=== PATIENT | male | born 1940 | race Caucasian/White ===

== ENCOUNTER → 2016-08-10 | Outpatient (CLI) | payer MEDICARE ==
[~2016-08-10] MED LIST: COUM6TAB PO; COUM7.5T PO; ENOX150I SQ; FAMO20TA2 PO; FURO1TAB93 PO; HYDR-3535 PO; LIPI40TA PO; LISI-363 PO; LISI30TA4 PO; LORT10TA PO; LYRI150C PO; LYRI225C PO; PROT40TA PO; SENN1TAB PO; WARF1TAB PO; ZETI10TA5 PO
[2016-08-10 10:29] LABS: INTERNATIONAL NORMALIZED RATIO 1.5 RATIO; PROTHROMBIN TIME - PATIENT 16.4 SEC (9.8-11.6)
== END ==
LOC: PLAB 09:28
PROVIDERS: ATTEND Specialist
DX: Z51.81 Encounter for therapeutic drug level monitoring (principal)
CPT/HCPCS: 36415; 85610

== ENCOUNTER → 2016-08-23 | Outpatient (CLI) | payer MEDICARE ==
[2016-08-23 15:08] LABS: INTERNATIONAL NORMALIZED RATIO 2.5 RATIO; PROTHROMBIN TIME - PATIENT 28.4 SEC (9.8-11.6)
== END ==
LOC: PLAB 14:18
PROVIDERS: ATTEND Specialist
DX: Z51.81 Encounter for therapeutic drug level monitoring (principal)
CPT/HCPCS: 36415; 85610

== ENCOUNTER → 2016-08-30 | Outpatient (CLI) | payer MEDICARE ==
[2016-08-30 16:39] LABS: AUTOMATED NEUTROPHIL # 4.6 TH/MM3 (1.8-7.7); BASOPHIL % 0.6 % (0.0-2.0); EOSINOPHIL # 0.2 TH/MM3 (0-0.4); EOSINOPHIL % 2.7 % (0.0-4.0); HEMATOCRIT 42.3 % (39.0-51.0); HEMO FLAGS DIFF FINAL; LYMPH % 22.8 % (9.0-44.0); LYMPHOCYTE # 1.5 TH/MM3 (1.0-4.8); MEAN CELL VOLUME 81.3 FL (80.0-100.0); MEAN CORPUSCULAR HEMOGLOBIN 27.1 PG (27.0-34.0); MEAN CORPUSCULAR HGB CONC 33.3 % (32.0-36.0); MONO % 6.8 % (0.0-8.0); NEUT % 67.1 % (16.0-70.0); PLATELET COUNT 167 TH/MM3 (150-450); RED CELL DISTRIBUTION WIDTH 13.9 % (11.6-17.2); WHITE BLOOD COUNT 6.8 TH/MM3 (4.0-11.0)
[2016-08-30 16:51] LABS: INTERNATIONAL NORMALIZED RATIO 5.9 RATIO; PROTHROMBIN TIME - PATIENT 70.4 SEC (9.8-11.6)
[2016-08-30 18:19] LABS: ANION GAP 8 MEQ/L (5-15); AST (GOT) 18 U/L (15-37); BICARBONATE 26.5 MEQ/L (21.0-32.0); BLOOD UREA NITROGEN 16 MG/DL (7-18); CHLORIDE 108 MEQ/L (98-107); GLOMERULAR FILTRATION RATE 59 ML/MIN (>89); POTASSIUM 4.3 MEQ/L (3.5-5.1); SODIUM (NA) 142 MEQ/L (136-145)
[2016-08-30 18:22] LABS: ALKALINE PHOSPHATASE 85 U/L (45-117); ALT (GPT) 31 U/L (12-78); TOTAL BILIRUBIN ADULT 0.4 MG/DL (0.2-1.0)
== END ==
LOC: PLAB 15:11
PROVIDERS: ATTEND Specialist
DX: G93.3 Postviral and related fatigue syndromes (principal); R53.1 Weakness; R53.81 Other malaise; R53.83 Other fatigue; M31.6 Other giant cell arteritis; I48.91 Unspecified atrial fibrillation; Z51.81 Encounter for therapeutic drug level monitoring
CPT/HCPCS: 36415; 80053; 85025; 85610

== ENCOUNTER → 2016-09-04 | Outpatient (CLI) | payer MEDICARE ==
[2016-09-04 16:05] LABS: INTERNATIONAL NORMALIZED RATIO 2.4 RATIO; PROTHROMBIN TIME - PATIENT 27.4 SEC (9.8-11.6)
== END ==
LOC: PLAB 13:02
PROVIDERS: ATTEND Specialist
DX: Z51.81 Encounter for therapeutic drug level monitoring (principal)
CPT/HCPCS: 36415; 85610

== ENCOUNTER → 2016-09-20 | Outpatient (CLI) | payer MEDICARE ==
[2016-09-20 16:33] LABS: INTERNATIONAL NORMALIZED RATIO 1.5 RATIO; PROTHROMBIN TIME - PATIENT 16.3 SEC (9.8-11.6)
== END ==
LOC: PLAB 15:35
PROVIDERS: ATTEND Specialist
DX: Z51.81 Encounter for therapeutic drug level monitoring (principal)
CPT/HCPCS: 36415; 85610

== ENCOUNTER → 2016-10-02 | Outpatient (CLI) | payer MEDICARE ==
[2016-10-02 10:48] LABS: INTERNATIONAL NORMALIZED RATIO 1.5 RATIO; PROTHROMBIN TIME - PATIENT 17.4 SEC (9.8-11.6)
== END ==
LOC: PLAB 09:39
PROVIDERS: ATTEND Specialist
DX: Z51.81 Encounter for therapeutic drug level monitoring (principal)
CPT/HCPCS: 36415; 85610

== ENCOUNTER → 2016-10-05 | Outpatient (CLI) | payer MEDICARE ==
[2016-10-05 12:38] LABS: INTERNATIONAL NORMALIZED RATIO 2.2 RATIO; PROTHROMBIN TIME - PATIENT 24.6 SEC (9.8-11.6)
== END ==
LOC: PLAB 11:33
PROVIDERS: ATTEND Specialist
DX: Z51.81 Encounter for therapeutic drug level monitoring (principal); Z79.899 Other long term (current) drug therapy
CPT/HCPCS: 36415; 85610

== ENCOUNTER 2016-12-26 20:01 | Observation (INO) | payer MEDICARE ==
[~2016-12-26] VITALS: Ht 182.9 cm; Wt 165.3 kg
[~2016-12-26 20:01] MED LIST changes: -COUM6TAB PO; -ENOX150I SQ; -FAMO20TA2 PO; -HYDR-3535 PO; -LISI30TA4 PO; -LYRI150C PO; -LYRI225C PO; -SENN1TAB PO
[2016-12-26 20:08] VITALS: BP 90/45; PULSE 83; RESP 20; TEMP 97.7; O2SAT 96
[2016-12-26] MEDS ORDERED: SODIUM CHLORIDE 0.9% FLUSH 10 ML FLUSH IVF PRN (20:30)
[2016-12-26] MEDS ORDERED: ASPIRIN 81 MG CHEW TAB PO ONE (20:30)
[2016-12-26] MEDS ORDERED: SODIUM CHLOR 0.9% 1000 ML INJ 1,000 ML IV ONE (20:30)
[2016-12-26] MEDS ORDERED: ZETI10TA5 PO (20:35)
[2016-12-26] MEDS ORDERED: COUM6TAB PO (20:35)
[2016-12-26] MEDS ORDERED: HYDR-3535 PO (20:35)
[2016-12-26] MEDS ORDERED: LIPI40TA PO (20:35)
[2016-12-26] MEDS ORDERED: PROT40TA PO (20:35)
[2016-12-26] MEDS ORDERED: LISI30TA4 PO (20:35)
[2016-12-26 20:39] VITALS: BP 110/46; PULSE 71; RESP 18; O2SAT 96
[2016-12-26 20:44] LABS: AUTOMATED NEUTROPHIL # 8.9 TH/MM3 (1.8-7.7); BASOPHIL # 0.1 TH/MM3 (0-0.2); BASOPHIL % 0.8 % (0.0-2.0); EOSINOPHIL # 0.1 TH/MM3 (0-0.4); EOSINOPHIL % 0.6 % (0.0-4.0); HEMATOCRIT 41.8 % (39.0-51.0); HEMO FLAGS DIFF FINAL; LYMPHOCYTE # 1.9 TH/MM3 (1.0-4.8); MEAN CELL VOLUME 82.1 FL (80.0-100.0); MEAN CORPUSCULAR HEMOGLOBIN 27.3 PG (27.0-34.0); MEAN CORPUSCULAR HGB CONC 33.2 % (32.0-36.0); MONO % 6.9 % (0.0-8.0); NEUT % 75.7 % (16.0-70.0); PLATELET COUNT 172 TH/MM3 (150-450); RED BLOOD COUNT 5.09 MIL/MM3 (4.50-5.90); WHITE BLOOD COUNT 11.8 TH/MM3 (4.0-11.0)
[2016-12-26 20:51] LABS: CHLORIDE 110 MEQ/L (98-107); POTASSIUM 5.4 MEQ/L (3.5-5.1); SODIUM (NA) 141 MEQ/L (136-145)
[2016-12-26 20:55] LABS: ANION GAP 12 MEQ/L (5-15); BICARBONATE 19.4 MEQ/L (21.0-32.0); BLOOD UREA NITROGEN 47 MG/DL (7-18)
--- NOTE | 2016-12-26 20:55 | RADHPO ---
EXAM DATE/TIME: 12/26/2016 20:41 [facility] COMPARISON: No previous studies available for comparison. INDICATIONS : Chest pain starting today MEDICAL HISTORY : None. SURGICAL HISTORY : None. ENCOUNTER: Initial ACUITY: 1 day PAIN SCORE: 8/10 LOCATION: Bilateral chest FINDINGS: A single portable frontal view the chest shows mild cardia megaly. No discrete infiltrate or effusion . The density partially obscuring the left cardiac apex is felt to relate to overlying soft tissues. A degenerative spine. CONCLUSION: Mild cardiomegaly. Pillo Oro Jr., MD on December 26, 2016 at 20:52 Board Certified Radiologist. This report was verified electronically.
[2016-12-26 20:57] LABS: INTERNATIONAL NORMALIZED RATIO 2.1 RATIO; PROTHROMBIN TIME - PATIENT 23.6 SEC (9.8-11.6)
[2016-12-26 20:58] LABS: GLOMERULAR FILTRATION RATE 16 ML/MIN (>89)
[2016-12-26 21:01] LABS: CREATINE KINASE 177 U/L (39-308)
[2016-12-26 21:17] LABS: CKMB 3.4 NG/ML (0.5-3.6)
--- NOTE | 2016-12-26 21:20 | PD ---
HPI Chief Complaint: Chest Pain Time Seen by Provider: 20:19 Travel History International Travel<30 days: No Contact w/Intl Traveler<30days: No Traveled to known affect area: No History of Present Illness HPI 76-year-old male with history of factor V Leiden deficiency, on Coumadin, here for evaluation of chest pain. The patient states that around 5:30 PM he had some blurred/double vision which resolved. Shortly after that he began experiencing substernal chest discomfort that radiates to his right chest. He describes the pain as a heaviness. Pain then resolved, then returned. No modifying factors. No known history of cardiac disease. Currently the pain is 2 out of 10. No dyspnea. No paresthesias or motor deficits. Currently he denies any double or blurred vision. There is family history of cardiac disease. He smokes cigarettes. 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) GERD: Yes Hypertension: Yes Respiratory: Yes (PULMONARY EBOLISM X 1) Immunizations Current: Yes Tetanus Vaccination: Unknown Influenza Vaccination: Yes Past Surgical History Appendectomy: Yes Joint Replacement: Yes (BILATERAL KNEES) Tonsillectomy: Yes Other Surgery: Yes (BROKEN NOSE REPAIR) Social History Alcohol Use: No (QUIT) Tobacco Use: Yes Substance Use: No Allergies-Medications (Allergen,Severity, Reaction): Coded Allergies: No Known Allergies (Unverified , 12/26/16) Reported Meds & Prescriptions Reported Meds & Active Scripts Active Reported Coumadin (Warfarin) 6 Mg Tab 7 Mg PO DAILY Protonix (Pantoprazole Sodium) 40 Mg Tab 40 Mg PO DAILY Lisinopril 30 Mg Tab 30 Mg PO DAILY Lortab (Hydrocodone-Acetaminophen) 10-325 Mg Tab 1 Tab PO Q6H PRN Zetia (Ezetimibe) 10 Mg Tab 10 Mg PO DAILY Lipitor (Atorvastatin Calcium) 40 Mg Tab 40 Mg PO HS Review of Systems Except as stated in HPI: all other systems reviewed are Neg Physical Exam Narrative GENERAL: Well-developed, well-nourished, overweight, awake, alert, no acute distress. SKIN: Focused skin assessment warm/slightly diaphoretic. HEAD: Atraumatic. Normocephalic. EYES: Pupils equal and round. No scleral icterus. No injection or drainage. ENT: Mucous membranes pink and dry. NECK: Trachea midline. No JVD. CARDIOVASCULAR: Regular rate and rhythm. Distal pulses brisk and equal bilaterally. RESPIRATORY: No accessory muscle use. Clear to auscultation. Breath sounds equal bilaterally. GASTROINTESTINAL: Abdomen soft, non-tender, nondistended. MUSCULOSKELETAL: No obvious deformities. No clubbing. No cyanosis. No edema. NEUROLOGICAL: Awake and alert. No obvious cranial nerve deficits. Motor grossly within normal limits. Normal speech. PSYCHIATRIC: Appropriate mood and affect; insight and judgment normal. Data Data Last Documented VS Vital Signs Date Time Temp Pulse Resp B/P Pulse Ox O2 Delivery O2 Flow Rate FiO2 12/26/16 20:39 71 18 96 Room Air 12/26/16 20:39 110/46 12/26/16 20:08 97.7 Orders Electrocardiogram (12/26/16 20:19) Basic Metabolic Panel (Bmp) (12/26/16 20:19) Ckmb (Isoenzyme) Profile (12/26/16 20:19) Complete Blood Count With Diff (12/26/16 20:19) Prothrombin Time / Inr (Pt) (12/26/16 20:19) Act Partial Throm Time (Ptt) (12/26/16 20:19) Troponin I (12/26/16 20:19) Chest, Single Ap (12/26/16 20:19) Ecg Monitoring (12/26/16 20:19) Iv Access Insert/Monitor (12/26/16 20:19) Oximetry (12/26/16 20:19) Aspirin Chew (Aspirin Chew) (12/26/16 20:30) Sodium Chloride 0.9% Flush (Ns Flush) (12/26/16 20:30) Sodium Chlor 0.9% 1000 Ml Inj (Ns 1000 M (12/26/16 20:30) CKMB (12/26/16 20:20) CKMB% (12/26/16 20:20) Labs Laboratory Tests Test 12/26/16 20:20 White Blood Count 11.8 TH/MM3 Red Blood Count 5.09 MIL/MM3 Hemoglobin 13.9 GM/DL Hematocrit 41.8 % Mean Corpuscular Volume 82.1 FL Mean Corpuscular Hemoglobin 27.3 PG Mean Corpuscular Hemoglobin 33.2 % Concent Red Cell Distribution Width 15.0 % Platelet Count 172 TH/MM3 Mean Platelet Volume 8.8 FL Neutrophils (%) (Auto) 75.7 % Lymphocytes (%) (Auto) 16.0 % Monocytes (%) (Auto) 6.9 % Eosinophils (%) (Auto) 0.6 % Basophils (%) (Auto) 0.8 % Neutrophils # (Auto) 8.9 TH/MM3 Lymphocytes # (Auto) 1.9 TH/MM3 Monocytes # (Auto) 0.8 TH/MM3 Eosinophils # (Auto) 0.1 TH/MM3 Basophils # (Auto) 0.1 TH/MM3 CBC Comment DIFF FINAL Differential Comment Prothrombin Time 23.6 SEC Prothromb Time International 2.1 RATIO Ratio Activated Partial 30.0 SEC Thromboplast Time Sodium Level 141 MEQ/L Potassium Level 5.4 MEQ/L Chloride Level 110 MEQ/L Carbon Dioxide Level 19.4 MEQ/L Anion Gap 12 MEQ/L Blood Urea Nitrogen 47 MG/DL Creatinine 3.70 MG/DL Estimat Glomerular Filtration 16 ML/MIN Rate Random Glucose 104 MG/DL Calcium Level 8.6 MG/DL Total Creatine Kinase 177 U/L Troponin I LESS THAN 0.02 NG/ML MDM Medical Decision Making Medical Screen Exam Complete: Yes Emergency Medical Condition: Yes Medical Record Reviewed: Yes Interpretation(s) EKG: Sinus, rate 75, first-degree AV block, Q waves in inferior leads, slight ST depressions in V4 through V6, no ST segment elevations. Differential Diagnosis ACS, pneumothorax, pericarditis, PE, pneumonia Narrative Course Initial vital signs show heart rate 83, blood pressure 90/45, pulse ox 96% on room air, oral temp of 97.7F. Blood pressure improved to 110/46 after a liter of normal saline bolus. CBC is unremarkable. BMP is remarkable for potassium 5.4, bicarbonate 19.4, BUN 47, creatinine 3.7, GFR 16, otherwise unremarkable. Labs in our system from August of this year show a BUN of 16, creatinine 1.21 , GFR 59. INR is 2.1 Cardiac enzymes are negative. Chest x-ray: Mild cardiomegaly. Patient and the patient's were made aware of all findings. He is resting comfortably. Currently chest pain-free. He will be admitted for further treatment and evaluation of acute renal insufficiency, chest pain. Case discussed with hospitalist Dr. Rico who will admit the patient to her service. Diagnosis Primary Impression: Chest pain Qualified Code: R07.9 - Chest pain, unspecified type Additional Impression: Acute renal insufficiency Admitting Information Admitting Physician Requests: Sudhakar Molina MD December 26, 2016 21:20
[2016-12-26 21:27] VITALS: BP 104/40; PULSE 57; RESP 18; O2SAT 96
[2016-12-26] MEDS ORDERED: LYRI150C PO (21:28)
[2016-12-26] MEDS ORDERED: SODIUM CHLORIDE 0.9% FLUSH 10 ML FLUSH IV FLUSH PRN (21:30)
[2016-12-26] MEDS ORDERED: NALOXONE HCL 0.4 MG/ML AMP IV PRN (21:30)
[2016-12-26 22:29] VITALS: BP 111/43; PULSE 58; RESP 18; O2SAT 95
[2016-12-27] VITALS (8 sets, daily range): BP systolic 94–143; BP diastolic 45–91; PULSE 55–71; RESP 16–20; TEMP 97–98.6; O2SAT 93–95
[2016-12-27 02:37] LABS: CREATINE KINASE 229 U/L (39-308)
--- NOTE | 2016-12-27 07:31 | EKG ---
Date Performed: 12/26/2016 Time Performed: 20:05:58 PTAGE: 76 years EKG: Sinus rhythm with 1st degree A-V block. Consider left atrial abnormality Possible inferior infarct - age undeterm ined Abnormal ECG NO PREVIOUS TRACING DOCTOR: Shalom Moreno Interpretating Date/Time 12/27/2016 07:30:57
[2016-12-27] MEDS ORDERED: LYRI225C PO (07:35)
[2016-12-27 08:14] LABS: AUTOMATED NEUTROPHIL # 3.4 TH/MM3 (1.8-7.7); BASOPHIL % 0.7 % (0.0-2.0); EOSINOPHIL # 0.2 TH/MM3 (0-0.4); EOSINOPHIL % 3.5 % (0.0-4.0); HEMATOCRIT 37.4 % (39.0-51.0); HEMO FLAGS DIFF FINAL; LYMPH % 29.6 % (9.0-44.0); LYMPHOCYTE # 1.8 TH/MM3 (1.0-4.8); MEAN CELL VOLUME 81.6 FL (80.0-100.0); MEAN CORPUSCULAR HEMOGLOBIN 27.3 PG (27.0-34.0); MEAN CORPUSCULAR HGB CONC 33.5 % (32.0-36.0); MONO % 11.5 % (0.0-8.0); NEUT % 54.7 % (16.0-70.0); PLATELET COUNT 145 TH/MM3 (150-450); RED BLOOD COUNT 4.58 MIL/MM3 (4.50-5.90); WHITE BLOOD COUNT 6.1 TH/MM3 (4.0-11.0)
[2016-12-27] MEDS ORDERED: ACETAMINOPHEN 325 MG TAB PO PRN ×2 (08:30)
[2016-12-27] MEDS ORDERED: ACETAMINOPHEN/HYDROcodone 325 MG/5 MG TAB PO PRN (08:30)
[2016-12-27] MEDS: DOCUSATE SODIUM 50 MG/SENNA 8.6 MG TAB PO SCH ×2 (08:40→22:14)
[2016-12-27] MEDS: EZETIMIBE 10 MG TAB PO SCH (08:40)
[2016-12-27] MEDS: ACETAMINOPHEN/HYDROcodone 325 MG/10 MG TAB PO PRN ×2 (08:41→22:18)
[2016-12-27] MEDS ORDERED: PREGABALIN 75 MG CAP PO SCH ×2 (09:00→21:00)
[2016-12-27] MEDS ORDERED: LISINOPRIL 10 MG TAB PO SCH (09:00)
[2016-12-27] MEDS ORDERED: SENNOSIDES 8.6 MG TAB PO PRN (09:00)
[2016-12-27] MEDS ORDERED: PANTOPRAZOLE SOD 40 MG DELAYED RELEASE TAB PO SCH (09:00)
[2016-12-27] MEDS ORDERED: ONDANSETRON HCL 4 MG/2 ML VIAL IVP PRN (09:00)
[2016-12-27 09:06] LABS: ANION GAP 9 MEQ/L (5-15); BLOOD UREA NITROGEN 48 MG/DL (7-18); CHLORIDE 110 MEQ/L (98-107); CREATINE KINASE 203 U/L (39-308); GLOMERULAR FILTRATION RATE 24 ML/MIN (>89); POTASSIUM 4.2 MEQ/L (3.5-5.1); SODIUM (NA) 143 MEQ/L (136-145)
[2016-12-27] MEDS: SODIUM CHLORIDE 0.9% FLUSH 10 ML FLUSH IV FLUSH SCH ×2 (09:21→19:52)
[2016-12-27 09:47] LABS: INTERNATIONAL NORMALIZED RATIO 1.9 RATIO; PROTHROMBIN TIME - PATIENT 21.5 SEC (9.8-11.6)
--- NOTE | 2016-12-27 11:01 | HHI.HP ---
[facility] Primary Care Physician Unknown Admission Diagnosis chest pain, acute renal insufficiency Diagnoses: Chief Complaint: dizziness Travel History International Travel<30 Days: No Contact w/Intl Traveler <30 Da: No Traveled to Known Affected Are: No History of Present Illness This is a 76-year-old male with history of factor V Leiden deficiency, DVT, PE on Coumadin, HLD, GERD and HTN . He presents to the emergency room complaining of dizziness for 2 days. It is intermittent worse when he gets up. He lost balance but no loss of consciousness or falls. No trauma. States he sees a bright light. The patient reports that around 5:30 PM yesterday he had some blurred/double vision which resolved. Shortly after that he began experiencing substernal mild dull chest discomfort that radiated briefly to his left chest then to his right chest for over an hour. No modifying factors. He took his home medication Lortab which he takes for his back pain which finally eased the pain when he was in the emergency department. No known history of cardiac disease. No dyspnea. No paresthesias, speech or motor deficits. He was found to be in acute kidney injury and was given IV fluids. His repeat blood work shows improvement of his kidney function and he feels much better. He denies any symptoms at this time. He also noted decreased urine output. Patient is not taking any new medications but takes Protonix. Denies nausea and vomiting. Usually has constipation from taking opiates and takes laxatives. He reports having loose stools for 2 days about 5 days ago. Review of Systems Except as stated in HPI: all other systems reviewed are Neg Past Family Social History Past Medical History As previously mentioned Past Surgical History Appendectomy, bilateral knee replacement, tonsillectomy and nasal fracture repair Reported Medications Coumadin (Warfarin) 6 Mg Tab 7 Mg PO DAILY Protonix (Pantoprazole Sodium) 40 Mg Tab 40 Mg PO DAILY Lisinopril 30 Mg Tab 30 Mg PO DAILY Lortab (Hydrocodone-Acetaminophen) 10-325 Mg Tab 1 Tab PO Q6H PRN Zetia (Ezetimibe) 10 Mg Tab 10 Mg PO DAILY Lipitor (Atorvastatin Calcium) 40 Mg Tab 40 Mg PO HS Allergies: Coded Allergies: No Known Allergies (Unverified , 12/26/16) Family History CVA and CAD Social History He does not use illicit drugs. Quit alcohol but continues to smoke occasionally Physical Exam Vital Signs Vital Signs Date Time Temp Pulse Resp B/P Pulse Ox O2 Delivery O2 Flow Rate FiO2 12/27/16 08:00 98.4 58 17 94/52 95 12/27/16 04:00 97.4 57 16 118/65 95 12/27/16 01:20 97.3 55 17 113/62 93 12/27/16 01:03 57 18 96 12/27/16 00:55 57 12/27/16 00:04 55 18 95/45 95 Room Air 12/26/16 22:29 58 18 111/43 95 Room Air 12/26/16 21:27 57 18 104/40 96 Room Air 12/26/16 20:39 71 18 96 Room Air 12/26/16 20:39 18 96 Room Air 12/26/16 20:39 71 18 110/46 96 Room Air 12/26/16 20:08 97.7 83 20 90/45 96 Physical Exam GENERAL: This is a well-nourished, well-developed patient, in no apparent distress. SKIN: No rashes, ecchymoses or lesions. Cool and dry. HEAD: Atraumatic. Normocephalic. No temporal or scalp tenderness. EYES: Pupils equal round and reactive. Extraocular motions intact. No scleral icterus. No injection or drainage. ENT: Nose without bleeding, purulent drainage or septal hematoma. Throat without erythema, tonsillar hypertrophy or exudate. Uvula midline. Airway patent. NECK: Trachea midline. No JVD or lymphadenopathy. Supple, nontender, no meningeal signs. CARDIOVASCULAR: Regular rate and rhythm without murmurs, gallops, or rubs. RESPIRATORY: Clear to auscultation. Breath sounds equal bilaterally. No wheezes , rales, or rhonchi. GASTROINTESTINAL: Abdomen soft, non-tender, nondistended. No guarding. MUSCULOSKELETAL: Extremities without clubbing, cyanosis but with bilateral lower extremity pitting edema (improving per patient). No joint tenderness, effusion, or edema noted. No calf tenderness. Negative Homans sign bilaterally. NEUROLOGICAL: Awake and alert. Cranial nerves II through XII intact. Motor and sensory grossly within normal limits. Five out of 5 muscle strength in all muscle groups. Normal speech. Laboratory Laboratory Tests Test 12/26/16 12/27/16 12/27/16 20:20 02:10 07:00 White Blood Count 11.8 6.1 Red Blood Count 5.09 4.58 Hemoglobin 13.9 12.5 Hematocrit 41.8 37.4 Mean Corpuscular Volume 82.1 81.6 Mean Corpuscular Hemoglobin 27.3 27.3 Mean Corpuscular Hemoglobin 33.2 33.5 Concent Red Cell Distribution Width 15.0 15.0 Platelet Count 172 145 Mean Platelet Volume 8.8 8.7 Neutrophils (%) (Auto) 75.7 54.7 Lymphocytes (%) (Auto) 16.0 29.6 Monocytes (%) (Auto) 6.9 11.5 Eosinophils (%) (Auto) 0.6 3.5 Basophils (%) (Auto) 0.8 0.7 Neutrophils # (Auto) 8.9 3.4 Lymphocytes # (Auto) 1.9 1.8 Monocytes # (Auto) 0.8 0.7 Eosinophils # (Auto) 0.1 0.2 Basophils # (Auto) 0.1 0.0 CBC Comment DIFF FINAL DIFF FINAL Differential Comment Prothrombin Time 23.6 21.5 Prothromb Time International 2.1 1.9 Ratio Activated Partial 30.0 Thromboplast Time Sodium Level 141 143 Potassium Level 5.4 4.2 Chloride Level 110 110 Carbon Dioxide Level 19.4 24.0 Anion Gap 12 9 Blood Urea Nitrogen 47 48 Creatinine 3.70 2.60 Estimat Glomerular Filtration 16 24 Rate Random Glucose 104 90 Calcium Level 8.6 8.2 Total Creatine Kinase 177 229 203 Creatine Kinase MB 3.4 Troponin I LESS THAN 0.02 LESS THAN 0.02 LESS THAN 0.02 Result Diagram: 12/27/16 0700 12/27/16 0700 Imaging EKG tracing interpreted by me sinus rhythm, first-degree AV block, Q waves in the inferior leads and mild ST depression in the lateral leads no previous EKG for comparison Chest x-ray image interpreted by me with no acute findings Last Impressions Chest X-Ray 12/26/162018 Signed Impressions: Service Date/Time: Monday, December 26, 2016 20:41 - CONCLUSION: Mild cardiomegaly. Pillo Oro Jr., MD Assessment and Plan Problem List: (1) Chest pain ICD Code: R07.9 Status: Acute Assessment and Plan This is a 76-year-old male who presents to the emergency room complaining of dizziness for 2 days. It is intermittent worse when he gets up. He lost balance but no loss of consciousness or falls. No trauma. States he sees a bright light. The patient reports he had some blurred/double vision which resolved. Shortly after that he began experiencing substernal mild dull chest discomfort that radiated briefly to his left chest then to his right chest for over an hour. No known history of cardiac disease. No dyspnea. No paresthesias , speech or motor deficits. He was found to be in acute kidney injury Chest pain which has resolved. He ruled out for PR. Recommended to undergo outpatient stress test. States he had negative stress test years ago. Doubt PE with therapeutic INR. Acute kidney injury likely from dehydration from recent diarrhea from use of laxatives. Improving with IV hydration which will be continued. Avoid nephrotoxins. Obtain renal sonogram. Will also discontinue PPI and hold JENI inhibitor. Constipation from use of opiates. Start Angeline-Colace Chronic medical conditions of factor V Leiden deficiency, DVT, PE on Coumadin, HLD, GERD and HTN . Continue outpatient medications as appropriate. Continue Coumadin to keep INR between 2 and 3. Discontinue PPI and start Zantac with renal dosing DVT prophylaxis patient on Coumadin Code Status Full Discussed Condition With Patient and nursing staff Problem Qualifiers (1) Chest pain: Qualified Code: R07.9 - Chest pain, unspecified type Pancho Michelle MD Dec 27, 2016 11:01
--- NOTE | 2016-12-27 11:49 | EKG ---
Date Performed: 12/27/2016 Time Performed: 01:59:42 PTAGE: 76 years EKG: Probable sinus bradycardia with 1st degree AVB Prolonged QT interval Possible inferior infa rct - age undetermined Septal T wave changes are nonspecific Abnormal ECG PREVIOUS TRACING : 12/26/2016 20.05 Compared to the previous tracing, rate has decreased DOCTOR: Shalom Moreno Interpretating Date/Time 12/27/2016 11:47:23
[2016-12-27] MEDS: SODIUM CHLOR 0.9% 1000 ML INJ 1,000 ML IV SCH ×2 (11:56→21:00)
[2016-12-27] MEDS ORDERED: RANITIDINE HCL SYRUP 150 MG/10 ML UDC PO SCH (13:00)
[2016-12-27] MEDS: FAMOTIDINE 20 MG TAB PO SCH ×2 (15:53→22:14)
[2016-12-27] MEDS ORDERED: WARFARIN SOD 1 MG TAB PO SCH (16:00)
[2016-12-27] MEDS ORDERED: WARFARIN SOD 6 MG TAB PO SCH (16:00)
--- NOTE | 2016-12-27 16:48 | RADHPO ---
EXAM DATE/TIME: 12/27/2016 15:14 [facility] COMPARISON: No previous studies available for comparison. INDICATIONS : Increased BUN/creatinine. MEDICAL HISTORY : Hypercholesterolemia. HTN. Chest pain. Pulmonary embolism. DVT. Ulcers. GERD. Acute renal failure . Factor V. Anticoagulant therapy, Coumadin. SURGICAL HISTORY : Tonsillectomy. Appendectomy. Left femur fracture. Bilateral knee replacements. Blood transfusions. Broken nose repair. ENCOUNTER: Initial ACUITY: 1 day PAIN SCORE: 0/10 LOCATION: Bilateral flank MEASUREMENTS: RIGHT KIDNEY: 11.5 x 6.5 x 7.6 cm LEFT KIDNEY: 12.6 x 6.7 x 7.3 cm FINDINGS: RIGHT KIDNEY: 3.2 cm parapelvic cyst in the midpole. Otherwise within normal limits. No evidence of hydronephrosis. LEFT KIDNEY: 4.5 cm simple cortical cyst in the midpole. Otherwise within normal limits. No evidence of hydronephr osis. BLADDER: Within normal limits given the degree of distension. CONCLUSION: Bilateral renal cysts. Atilio Pablo MD on December 27, 2016 at 16:45 Board Certified Radiologist. This report was verified electronically.
--- NOTE | 2016-12-27 17:25 | EC ---
Study Study Date:12/27/2016 STUDY CONCLUSIONS SUMMARY LEFT VENTRICLE: The cavity size was normal. Wall thickness was normal. Systolic function was normal. The estimated ejection fraction was in the range of 55% to 60%. Wall motion was normal; there were no regional wall motion abnormalities. If LV function is below 40, please consider prescribing an ACEI or ARB or document rationale for non-use. PROCEDURE DATA STUDY STATUS: Elective. Procedure: Transthoracic echocardiography. Image quality was good. Scanning was performed from the parasternal, apical, and subcostal acoustic windows. Study completion: The patient tolerated the procedure well. Transthoracic echocardiography. M-mode, complete 2D, complete spectral Doppler, and color Doppler. Patient status: Inpatient. CARDIAC ANATOMY LEFT VENTRICLE: The cavity size was normal. Wall thickness was normal. Systolic function was normal. The estimated ejection fraction was in the range of 55% to 60%. Wall motion was normal; there were no regional wall motion abnormalities. AORTIC VALVE: Trileaflet; normal thickness leaflets. Doppler: Transvalvular velocity was within the normal range. There was no stenosis. No regurgitation. AORTA: Aortic root: The aortic root was normal in size. MITRAL VALVE: Structurally normal valve. Doppler: Transvalvular velocity was within the normal range. There was no evidence for stenosis. No regurgitation. LEFT ATRIUM: The atrium was normal in size. RIGHT VENTRICLE: The cavity size was normal. Wall thickness was normal. PULMONIC VALVE: Doppler: Transvalvular velocity was within the normal range. There was no evidence for stenosis. No regurgitation. TRICUSPID VALVE: Structurally normal valve. Doppler: Transvalvular velocity was within the normal range. No regurgitation. PULMONARY ARTERY: The main pulmonary artery was normal-sized. Systolic pressure was within the normal range. RIGHT ATRIUM: The atrium was normal in size. PERICARDIUM: There was no pericardial effusion. SYSTEMIC VEINS: Inferior vena cava: The vessel was normal in size. BASIC MEASUREMENTS ADULT NORMAL Left ventricle LV internal dimension, ED, chordal level, *38.8 mm 43-52 PLAX LV internal dimension, ES, chordal level, 30.7 mm 23-38 PLAX Fractional shortening, chordal level, PLAX *21 % >29 LV posterior wall thickness, ED 11.5 mm IVS/LVPW ratio, ED 1.18 <1.3 Ventricular septum Septal thickness, ED 13.6 mm Aortic valve Leaflet separation 20 mm 15-26 Right ventricle RV internal dimension, ED, PLAX *41.6 mm 19-38 BASIC MEASUREMENTS ADULT NORMAL Aortic valve Leaflet separation 20 mm 15-26 Aorta Root diameter, ED *44 mm 20-37 Left atrium Anterior-posterior dimension, ES 38 mm 19-40 LA/aortic root ratio 0.86 LEGEND: Mean values are shown as u=mean value. Asterisk (*) nichols values outside specified normal range. Prepared and signed by Sreekanth Barraza [id number]
[2016-12-27] MEDS ORDERED: ATORVASTATIN 40 MG TAB PO SCH (21:00)
[2016-12-28] VITALS: BP 125/59; PULSE 52; RESP 20; TEMP 96.6; O2SAT 94
[2016-12-28 06:12] LABS: BASOPHIL % 0.7 % (0.0-2.0); EOSINOPHIL # 0.2 TH/MM3 (0-0.4); EOSINOPHIL % 3.2 % (0.0-4.0); HEMATOCRIT 38.2 % (39.0-51.0); HEMO FLAGS DIFF FINAL; LYMPHOCYTE # 1.6 TH/MM3 (1.0-4.8); MEAN CELL VOLUME 81.8 FL (80.0-100.0); MEAN CORPUSCULAR HEMOGLOBIN 27.2 PG (27.0-34.0); MEAN CORPUSCULAR HGB CONC 33.3 % (32.0-36.0); MONO % 10.1 % (0.0-8.0); PLATELET COUNT 133 TH/MM3 (150-450); RED BLOOD COUNT 4.67 MIL/MM3 (4.50-5.90); RED CELL DISTRIBUTION WIDTH 14.9 % (11.6-17.2); WHITE BLOOD COUNT 5.3 TH/MM3 (4.0-11.0)
[2016-12-28 06:30] LABS: INTERNATIONAL NORMALIZED RATIO 1.8 RATIO; PROTHROMBIN TIME - PATIENT 20.1 SEC (9.8-11.6)
[2016-12-28 06:32] LABS: POTASSIUM 4.5 MEQ/L (3.5-5.1)
[2016-12-28 06:42] LABS: BICARBONATE 23.4 MEQ/L (21.0-32.0); MAGNESIUM 2.2 MG/DL (1.5-2.5)
[2016-12-28 08:00] VITALS: BP_SYST 155; BP_SYST 181; BP_SYST 209; BP_DIAS 60; BP_DIAS 90; BP_DIAS 92; PULSE 61; RESP 20; TEMP 97.5; O2SAT 96
[2016-12-28] MEDS: EZETIMIBE 10 MG TAB PO SCH (08:22)
[2016-12-28] MEDS: DOCUSATE SODIUM 50 MG/SENNA 8.6 MG TAB PO SCH (08:22)
[2016-12-28] MEDS: FAMOTIDINE 20 MG TAB PO SCH (08:22)
[2016-12-28] MEDS: SODIUM CHLORIDE 0.9% FLUSH 10 ML FLUSH IV FLUSH SCH (08:22)
[2016-12-28] MEDS ORDERED: PREGABALIN 75 MG CAP PO SCH ×2 (10:00→18:00)
[2016-12-28] MEDS ORDERED: cloNIDine HCL 0.1 MG TAB PO PRN (10:45)
[2016-12-28] MEDS ORDERED: ENALAPRILAT 1.25 MG/ML VIAL IV PRN (11:00)
[2016-12-28] MEDS ORDERED: hydrALAZINE HCL 20 MG/ML VIAL IV PRN (11:00)
[2016-12-28] MEDS ORDERED: LISINOPRIL 10 MG TAB PO SCH (11:00)
--- NOTE | 2016-12-28 11:41 | HHI.PR ---
Subjective Remarks Follow-up acute kidney injury. Patient without complaints denies dizziness he has been ambulating. He is also stooling. Unable to do brain MRI because of weight limitations. Seen with . Discussed with RN Objective Vitals Vital Signs Date Time Temp Pulse Resp B/P Pulse Ox O2 Delivery O2 Flow Rate FiO2 12/28/16 08:00 97.5 61 20 155/60 96 181/92 209/90 12/28/16 00:00 96.6 52 20 125/59 94 12/27/16 20:00 97.0 61 20 143/91 93 12/27/16 16:00 98.6 71 18 102/70 95 12/27/16 12:00 98.5 61 17 99/68 94 I/O 12/27/16 12/27/16 12/27/16 12/28/16 12/28/16 12/28/16 07:00 15:00 23:00 07:00 15:00 23:00 Intake Total 720 ml 240 ml 480 ml Output Total 775 ml 450 ml Balance 720 ml -535 ml 30 ml Intake Oral 720 ml 240 ml 480 ml Output Urine Total 775 ml 450 ml # Voids 1 2 # Bowel Movements 0 Result Diagram: 12/28/16 0530 12/28/16 0530 Imaging Last Impressions Renal Ultrasound 12/27/16 0000 Signed Impressions: Service Date/Time: December 15:14 - CONCLUSION: Bilateral renal cysts. Atilio Pablo MD Chest X-Ray 12/26/162018 Signed Impressions: Service Date/Time: Monday, December 26, 2016 20:41 - CONCLUSION: Mild cardiomegaly. Pillo Oro Jr., MD Objective Remarks GENERAL: This is a well-nourished, well-developed patient, in no apparent distress. SKIN: No rashes, ecchymoses or lesions. Cool and dry. HEAD: Atraumatic. Normocephalic. No temporal or scalp tenderness. EYES: Pupils equal round and reactive. Extraocular motions intact. No scleral icterus. No injection or drainage. ENT: Nose without bleeding, purulent drainage or septal hematoma. Throat without erythema, tonsillar hypertrophy or exudate. Uvula midline. Airway patent. NECK: Trachea midline. No JVD or lymphadenopathy. Supple, nontender, no meningeal signs. CARDIOVASCULAR: Regular rate and rhythm without murmurs, gallops, or rubs. RESPIRATORY: Clear to auscultation. Breath sounds equal bilaterally. No wheezes , rales, or rhonchi. GASTROINTESTINAL: Abdomen soft, non-tender, nondistended. No guarding. MUSCULOSKELETAL: Extremities without clubbing, cyanosis but with bilateral lower extremity pitting edema (improving per patient). No joint tenderness, effusion, or edema noted. No calf tenderness. Negative Homans sign bilaterally. NEUROLOGICAL: Awake and alert. Cranial nerves II through XII intact. Motor and sensory grossly within normal limits. Five out of 5 muscle strength in all muscle groups. Normal speech. Nonfocal Procedures none A/P Problem List: (1) Chest pain ICD Code: R07.9 Status: Acute Assessment and Plan This is a 76-year-old male who presents to the emergency room complaining of dizziness for 2 days. It is intermittent worse when he gets up. He lost balance but no loss of consciousness or falls. No trauma. States he sees a bright light. The patient reports he had some blurred/double vision which resolved. Shortly after that he began experiencing substernal mild dull chest discomfort that radiated briefly to his left chest then to his right chest for over an hour. No known history of cardiac disease. No dyspnea. No paresthesias , speech or motor deficits. He was found to be in acute kidney injury Chest pain which has resolved. He ruled out for [place]. Recommended to undergo outpatient stress test. States he had negative stress test years ago. Doubt PE with therapeutic INR. Acute kidney injury likely from dehydration from recent diarrhea from use of laxatives. Resolve in with IV hydration which will be discontinued. Avoid nephrotoxins. Renal sonogram shows no obstruction. Will also discontinue PPI Constipation from use of opiates. Improving continue Angeline-Colace Chronic medical conditions of factor V Leiden deficiency, DVT, PE on Coumadin, HLD, GERD and HTN . Continue outpatient medications as appropriate. Continue Coumadin to keep INR between 2 and 3. INR subtherapeutic for the past 2 days start Lovenox for bridging which the patient is very familiar and has given himself shots before. He will be discharged on Lovenox until INR is therapeutic at least 2. Discontinue PPI and continue Pepcid with renal dosing. Initially blood pressure uncontrolled improved after restarting lisinopril and stopping IV fluid DVT prophylaxis patient on Coumadin Discharge Planning Discharge patient to home Condition on discharge: Improved Regular Diet as tolerated Ad Lidia activity no driving Rx written: Lovenox, Pepcid and Angeline-Colace Follow-up with primary care physician in one week Problem Qualifiers (1) Chest pain: Qualified Code: R07.9 - Chest pain, unspecified type Pancho Michelle MD Dec 28, 2016 11:41
[2016-12-28] MEDS ORDERED: FAMO20TA2 PO (11:44)
[2016-12-28] MEDS ORDERED: SENN1TAB PO (11:44)
--- NOTE | 2016-12-28 11:44 | HHI.DCPOC ---
Discharge Care Plan Diagnosis: (1) Acute renal insufficiency (2) Chest pain Your Health Problems Are: Difficulty with ADL Exercise Tolerance Goals to Promote Your Health * To prevent worsening of your condition and complications * To maintain your health at the optimal level Directions to Meet Your Goals Take your medications as prescribed Follow your dietary instruction Follow activity as directed Keep your appointments as scheduled Take your immunizations and boosters as scheduled If your symptoms worsen call your PCP, if no PCP go to Urgent Care Center or Emergency Room Smoking is Dangerous to Your Health. Avoid second hand smoke Call the 24-hour hour crisis hotline for domestic abuse at Pancho Michelle MD Dec 28, 2016 11:44
[2016-12-28 12:00] VITALS: BP 139/74; PULSE 54; RESP 19; TEMP 96.2; O2SAT 92
[2016-12-28] MEDS ORDERED: ENOXAPARIN SODIUM 150 MG/ML SYRINGE SQ SCH (12:00)
[2016-12-28] MEDS ORDERED: ENOX150I SQ (12:32)
[2016-12-28 13:31] VITALS: BP 141/77
[2016-12-28] MEDS ORDERED: WARFARIN SOD 3 MG TAB PO ONE (16:00)
== END 2016-12-28 13:56 | disposition home or self-care (01) ==
LOC: PHED 20:01 → PHEDA 21:21 → PH3A 12-27 00:48
PROVIDERS: ADMIT Internal Medicine; ATTEND Internal Medicine
DX: R07.89 Other chest pain (principal); N17.9 Acute kidney failure, unspecified; E86.0 Dehydration; R19.7 Diarrhea, unspecified; H53.2 Diplopia; D68.51 Activated protein C resistance; Z82.49 Family history of ischemic heart disease and other diseases of the circulatory system; I26.99 Other pulmonary embolism without acute cor pulmonale; E78.00 Pure hypercholesterolemia, unspecified; Z79.01 Long term (current) use of anticoagulants; K21.9 Gastro-esophageal reflux disease without esophagitis; F17.210 Nicotine dependence, cigarettes, uncomplicated; E78.5 Hyperlipidemia, unspecified
CPT/HCPCS: 71010; 76775; 80048; 82550; 82552; 83735; 84484; 85025; 85610; 85730; 93005; 93306; 96360; 97110; 97116; 97162; 99285; G0378; G8987; G8988; J1650; J7030

== ENCOUNTER → 2017-01-04 | Outpatient (CLI) | payer MEDICARE ==
[~2017-01-04] MED LIST changes: +COUM6TAB PO; -COUM7.5T PO; +ENOX150I SQ; +FAMO20TA2 PO; -FURO1TAB93 PO; +HYDR-3535 PO; -LISI-363 PO; +LISI30TA4 PO; -LORT10TA PO; +LYRI150C PO; +LYRI225C PO; +SENN1TAB PO; -WARF1TAB PO
[2017-01-04 12:31] LABS: INTERNATIONAL NORMALIZED RATIO 2.3 RATIO; PROTHROMBIN TIME - PATIENT 26.5 SEC (9.8-11.6)
== END ==
LOC: PLAB 11:41
PROVIDERS: ATTEND Specialist
DX: Z51.81 Encounter for therapeutic drug level monitoring (principal)
CPT/HCPCS: 36415; 85610